=== PATIENT | female | born 1960 | race Caucasian/White ===

== ENCOUNTER → 2022-08-23 | Outpatient (CLI) | payer OTHER | LOC: MAMMO 10:04 | PROVIDERS: ATTEND Internal Medicine | DX: Z12.31 Encounter for screening mammogram for malignant neoplasm of breast (principal); M85.88 Other specified disorders of bone density and structure, other site; M47.26 Other spondylosis with radiculopathy, lumbar region; J43.8 Other emphysema | CPT/HCPCS: 71046; 77067; 77080 ==